=== PATIENT | female | born 1960 | race African-American/Black ===

== ENCOUNTER 2018-04-11 22:08 | Emergency (ER) | payer SELFPAY ==
[~2018-04-11] VITALS: Ht 162.6 cm; Wt 77.0 kg
[2018-04-12 03:23] VITALS: BP 143/89
== END 2018-04-12 07:57 | disposition left against medical advice (07) ==
LOC: ER 22:08
DX: Z53.21 Procedure and treatment not carried out due to patient leaving prior to being seen by health care provider (principal)